=== PATIENT | male | born 1955 | race Caucasian/White ===

== ENCOUNTER 2018-12-27 12:17 | Emergency (ER) | payer SELFPAY | END 2018-12-27 13:27 | disposition home or self-care (01) | LOC: NAV ERS 12:17 | DX: C44.310 Basal cell carcinoma of skin of unspecified parts of face (principal); C44.619 Basal cell carcinoma of skin of left upper limb, including shoulder; F17.210 Nicotine dependence, cigarettes, uncomplicated | CPT/HCPCS: 99283 ==

== ENCOUNTER 2021-09-21 11:18 | Outpatient (CLI) | payer MEDICARE ==
[2021-09-21 12:16] LABS: ALT (SGPT) 111 U/L (8-55); AST (SGOT) 69 U/L (5-34); Albumin 4.2 g/dL (3.4-4.8); Alkaline Phosphatase 87 U/L (40-110); Anion Gap 13 mmol/L (10-20); BUN (Urea Nitrogen) 19 mg/dL (8.4-25.7); Bilirubin, Total 0.3 mg/dL (0.2-1.2); Calc. Creatinine Clearance 0 mL/min (70-130); Calcium 9.4 mg/dL (7.8-10.44); Carbon Dioxide 29 mmol/L (23-31); Chloride 100 mmol/L (98-107); Globulin 3.7 g/dL (2.4-3.5); Glucose 108 mg/dL (80-115); Potassium 4.8 mmol/L (3.5-5.1); Protein, Total 7.9 g/dL (5.8-8.1); Sodium 137 mmol/L (136-145)
[2021-09-21 13:16] LABS: Follow-up Chemistry Comp? YES; Follow-up Result - Chemistry REPORT FAXED
== END 2021-09-21 11:19 | disposition home or self-care (01) ==
LOC: NAV LAB 11:18
PROVIDERS: ATTEND Otolaryngology
DX: Z01.812 Encounter for preprocedural laboratory examination (principal)
CPT/HCPCS: 36415; 80053

== ENCOUNTER 2024-06-11 19:02 | Emergency (ER) | payer MEDICARE ==
[2024-06-11] MEDS ORDERED: Penicillin V Potassium 250 MG TAB ONE (19:34)
== END 2024-06-11 19:43 | disposition home or self-care (01) ==
LOC: NAV ERS 19:02
DX: K04.4 Acute apical periodontitis of pulpal origin (principal); K02.9 Dental caries, unspecified; I10 Essential (primary) hypertension; F17.290 Nicotine dependence, other tobacco product, uncomplicated
CPT/HCPCS: 99282